=== PATIENT | male | born 1980 | race Caucasian/White ===

== ENCOUNTER 2023-02-01 12:35 | Inpatient (IN) ==
--- NOTE | 2023-02-01 12:58 | ED Triage Note ---
Date of Service February 01, 2023 History of Present Illness This patient was briefly evaluated while in triage. An abbreviated physical exam was performed. This patient is a 43-year-old Male who presents to the ED for evaluation of right upper abdominal pain. Symptoms have been ongoing for a while but Wednesday became acutely worse. Pain is intermittent and crampy. Not associated with meals or BM. Reports fever over weekend. Denies vomiting or diarrhea. Physical Exam Constitutional: alert and oriented x3. no acute distress. HEENT: normocephalic, atraumatic. normal conjunctiva.PERRLA. EOM's grossly intact. Respiratory: lungs are clear to auscultation without wheezes, rhonchi, or rales bilaterally. equal chest rise. normal respiratory effort, no accessory muscle use. Cardiovascular: normal heart sounds without murmur. regular rate and rhythm. GI: abdomen is soft, nondistended. RUQ tenderness. No palpable masses. No rebound tenderness or guarding. MSK: moves all 4 extremities spontaneously Psych:appropriate mood and affect. Initial orders for labs and / or imaging were placed and patient was placed in the waiting area until a bed is available. Please see further documentation for the full ED course.
--- NOTE | 2023-02-01 13:31 | XRay Report ---
XR chest 1V not portable HISTORY: 43 years-old Male RUQ abd pain acute right upper quadrant abdominal pain COMPARISON: None TECHNIQUE: PA view of the chest FINDINGS: Cardiac mediastinal and hilar silhouettes are within normal limits. No pneumothorax, pleural effusion , airspace consolidation or pulmonary edema. Bones appear grossly intact. IMPRESSION: No acute process. ACT 112: Negative or not required by law. The above report was generated using voice recognition software. It may contain grammatical, syntax o r spelling errors. Electronically signed by: Wilfredo Ward M.D. 02/01/2023 1:29 PM
[2023-02-01 14:26] LABS: Basophils # (auto) 0.03 K/uL (0.00-0.20); Basophils % (auto) 0.3 %; Eosinophils # (auto) 0.07 K/uL (0.00-0.50); Eosinophils % (auto) 0.6 %; Hemoglobin 15.5 g/dl (14.0-18.0); Immature Granulocytes # (auto) 0.04 K/uL (0.01-0.20); Immature Granulocytes % (auto) 0.4 %; Lymphocytes # (auto) 1.39 K/uL (1.20-3.40); Lymphocytes % (auto) 12.8 %; Mean Corpuscular Hemoglobin 29.8 pg (25.0-34.0); Mean Corpuscular Hgb Conc 35.2 g/dL (32.0-36.0); Mean Corpuscular Volume 84.5 fL (80.0-100.0); Mean Platelet Volume 10.1 fL (9.4-12.4); Monocytes % (auto) 11.1 %; Neutrophils # (auto) 8.11 K/uL (1.40-6.50); Neutrophils % (auto) 74.8 %; Platelet Count 195 K/uL (130-400); RDW Standard Deviation 40.2 fL (36.4-46.3); Red Blood Count 5.21 M/uL (4.70-6.10); White Blood Count 10.84 K/ul (4.8-10.8)
[2023-02-01 14:34] LABS: Albumin Globulin Ratio 1.2 (0.9-2); BUN Creatinine Ratio 13.5 (10-20); Calcium 9.2 mg/dl (8.6-10.3); Creatinine Clr Calc Pharmacy 136.7 ml/min; Est GFR (African American) 121.4 ml/min; Est GFR (Non-African American) 104.7 ml/min; Globulin 3.4 gm/dl (2.5-4.0); Potassium 3.2 mmol/L (3.5-5.1); Total Protein 7.4 gm/dl (6.0-8.3)
[2023-02-01] MEDS ORDERED: OPTIRAY 320 100ml IV ONE (15:41)
--- NOTE | 2023-02-01 16:16 | Emergency Department Note ---
History of Present Illness General Chief complaint: Abdominal Pain Stated complaint: abd pain Time Seen by Provider: 02/01/23 15:49 Source: patient, RN notes reviewed and old records reviewed Mode of arrival: ambulatory Limitations: no limitations History of Present Illness Maximum Pain Intensity: 1 This patient is a 43-year-old male who comes in with right upper quad abdominal pain. He said he first noticed in 2020 he had sporadically since then but has had a particularly bad episode since Wednesday evening or morning he woke up at 4:00 in the morning it was severe pain harder than before and lasted much longer. He denies any nausea vomitings had decreased appetite he has had loose stool without blood no dysuria no trauma or injury no chest pain or shortness of breath no pleurisy no change with movement it gets a little better with ibuprofen he still has some mild residual discomfort. He just feels like there is something there Home Medications Medication Instructions Recorded Confirmed Type No Known Home Medications 02/01/23 02/01/23 History Allergies Allergy/AdvReac Type Severity Reaction Status Date / Time No Known Allergies Allergy Unverified 02/01/23 18:52 Past Med/Surg History Medical History No significant past medical history Surgical History No significant past surgical history Family History Father Heart disease Mother Gallstone Uncle Cancer Pancreatic cancer in his 50s, around ~2002. Social History Smoking Status: Never smoker Hx Alcohol Use: No Hx Substance Use: No current occupational status: employed Feels Safe at Home: Yes Immunizations: Past medical historydenies kidney stones denies abdominal surgery Family history his mother just had gallstones Social historydoes not smoke. 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 Review of Systems A total of 10 systems reviewed and were otherwise negative Physical Exam Vital Signs Vital Signs - 24 hr 02/01/23 12:55 02/01/23 17:25 02/01/23 17:25 Temperature 36.8 C Temperature Source Temporal Artery Scan Pulse Rate 83 84 Pulse Rate [Finger] 84 Pulse Rate from SpO2 Sensor Pulse Rhythm Regular Pulse Rhythm [Finger] Regular Pulse Strength [Finger] Normal Respiratory Rate 18 16 16 Respiratory Effort / Characteristics Non-Labored Spontaneous Non-Labored Spontaneous Respiratory Depth Normal Normal Respiratory Pattern Regular Regular Blood Pressure 146/98 H Blood Pressure [Right Arm] 142/83 H Blood Pressure Mean 114 Blood Pressure Mean [Right Arm] 102 Blood Pressure Position [Right Arm] Sitting Pulse Oximetry 97 97 97 Oxygen Delivery Method Room Air Room Air Room Air Sepsis Recent Fever Within 48 Hours Yes Sepsis New/Unexplained Change in Mental Status N/A Sepsis Action Taken by Nursing No Action Required 02/01/23 18:35 02/01/23 18:34 02/01/23 19:00 Temperature Temperature Source Pulse Rate 87 85 Pulse Rate [Finger] 88 Pulse Rate from SpO2 Sensor 88 Pulse Rhythm Pulse Rhythm [Finger] Pulse Strength [Finger] Respiratory Rate 21 19 Respiratory Effort / Characteristics Respiratory Depth Respiratory Pattern Blood Pressure 146/79 H Blood Pressure [Right Arm] 144/78 H Blood Pressure Mean 101 Blood Pressure Mean [Right Arm] 100 Blood Pressure Position [Right Arm] Pulse Oximetry 97 96 Oxygen Delivery Method Room Air Sepsis Recent Fever Within 48 Hours Sepsis New/Unexplained Change in Mental Status Sepsis Action Taken by Nursing 02/01/23 21:00 Temperature Temperature Source Pulse Rate Pulse Rate [Finger] 75 Pulse Rate from SpO2 Sensor Pulse Rhythm Pulse Rhythm [Finger] Pulse Strength [Finger] Respiratory Rate 15 Respiratory Effort / Characteristics Respiratory Depth Respiratory Pattern Blood Pressure Blood Pressure [Right Arm] Blood Pressure Mean Blood Pressure Mean [Right Arm] Blood Pressure Position [Right Arm] Pulse Oximetry 96 Oxygen Delivery Method Sepsis Recent Fever Within 48 Hours Sepsis New/Unexplained Change in Mental Status Sepsis Action Taken by Nursing General: Well developed well nourished not ill-appearing middle-age male who appears in no acute distress, breathing comfortably on room air. Normal speech HEENT: Normal cephalic atraumatic. Pupils are equal round and reactive to light. Sclera anicteric extraocular movements are intact. Oropharynx is pink with moist mucous membranes. No swelling of the mouth lips or tongue. Neck: Supple with a midline trachea. No meningeal signs or stiffness, no JVD or bruits. No Stridor. Chest: Clear to auscultation bilaterally. No wheezes or rhonchi. No increased work of breathing. Heart: Regular rate and rhythm without murmurs or gallops. Abdomen: Soft, mildly tender in the epigastric area in the right upper quadrant, nondistended without rebound guarding or rigidity. Extremities: No cyanosis clubbing or edema. No calf tenderness or assymetry Spine/Back. Non tender to palpation. No CVA tenderness Skin: Good turgor without rashes. Neurologic exam: Cranial nerves two through 12 are intact. Motor and sensation are intact and symmetrical throughout. Course Administered Medications Acetaminophen (Acetaminophen 325 Mg Tab) 650 mg PO Q4H PRN PRN Reason: Moderate Pain (Scale 4, 5, 6) Stop: 03/03/23 18:11 Last Admin: 02/01/23 19:16 Dose: 650 mg Documented By: LATONYA Lactated Ringer's (Lr) 1,000 mls @ 80 mls/hr IV .[id number] LUCÍA Stop: 02/02/23 07:04 Last Admin: 02/01/23 18:51 Dose: 80 mls/hr Documented By: QUYEN Discontinued Medications Piperacillin Sod/Tazobactam (Sod 4.5 gm/ Dextrose) 100 mls @ 200 mls/hr IV NOW ONE; Protocol Stop: 02/01/23 17:52 Last Infusion: 02/01/23 19:18 Dose: 0 mls/hr Documented By: Admin: 02/01/23 18:00 Dose: 200 mls/hr Documented By: LIN Ioversol (Optiray 320 100ml) 91 ml IV ONCE ONE Stop: 02/01/23 15:42 Last Admin: 02/01/23 15:41 Dose: 91 ml Documented By: ELIJAH Potassium Chloride (Potassium Chloride Crtab 20 Meq Tabcr) 20 meq PO NOW STA Stop: 02/01/23 18:39 Last Admin: 02/01/23 18:50 Dose: 20 meq Documented By: QUYEN Potassium Chloride (Potassium Chloride Crtab 20 Meq Tabcr) 20 meq PO NOW STA Stop: 02/01/23 18:29 Last Admin: 02/01/23 18:51 Dose: 20 meq Documented By: QUYEN Medical Decision Making Differential Diagnosis Gallbladder disease, gallstones, hepatitis, pancreatitis, electrolyte or metabolic abnormality, anemia, bowel obstruction, UTI kidney stone Medical Records Attestation: I reviewed the patient's medical records. Home Medications Current Medication List: was personally reviewed by me Laboratory Data Attestation: I reviewed the patient's lab results. 02/01/23 14:02 02/01/23 14:02 Lab Results 02/01/23 02/01/23 02/01/23 Range/Units 14:02 14:02 18:58 WBC 10.84 H (4.8-10.8) K/ul RBC 5.21 (4.70-6.10) M/uL Hgb 15.5 (14.0-18.0) g/dl Hct 44.0 (42.0-52.0) % MCV 84.5 (80.0-100.0) fL MCH 29.8 (25.0-34.0) pg MCHC 35.2 (32.0-36.0) g/dL RDW Std Deviation 40.2 (36.4-46.3) fL RDW Coeff of Yesy 13.0 (11.5-14.5) % Plt Count 195 (130-400) K/uL MPV 10.1 (9.4-12.4) fL Immature Gran % (Auto) 0.4 % Neut % (Auto) 74.8 % Lymph % (Auto) 12.8 % [place] % (Auto) 11.1 % Eos % (Auto) 0.6 % Baso % (Auto) 0.3 % Neut # (Auto) 8.11 H (1.40-6.50) K/uL Lymph # (Auto) 1.39 (1.20-3.40) K/uL [place] # (Auto) 1.20 H (0.11-0.59) K/uL Eos # (Auto) 0.07 (0.00-0.50) K/uL Baso # (Auto) 0.03 (0.00-0.20) K/uL Immature Gran # (Auto) 0.04 (0.01-0.20) K/uL Sodium 138 (136-145) mmol/L Potassium 3.2 L (3.5-5.1) mmol/L Chloride 100 (98-107) mmol/L Carbon Dioxide 31 (21-32) mmol/L Anion Gap 7 (3-11) BUN 12 (6-23) mg/dl Creatinine 0.89 (0.6-1.4) mg/dl Est Cr Clr Drug Dosing 136.7 ml/min Est GFR ( Amer) 121.4 ml/min Est GFR (Non-Af Amer) 104.7 ml/min BUN/Creatinine Ratio 13.5 (10-20) Glucose 95 (70-99(Fasting)) mg/dl Calcium 9.2 (8.6-10.3) mg/dl Total Bilirubin 1.0 (0.2-1.0) mg/dl AST 27 (13-39) U/L ALT 40 (7-52) U/L Alkaline Phosphatase 111 H (34-104) U/L Total Protein 7.4 (6.0-8.3) gm/dl Albumin 4.0 (3.4-5.0) gm/dl Globulin 3.4 (2.5-4.0) gm/dl Albumin/Globulin Ratio 1.2 (0.9-2) Lipase 33 (11-82) U/L Urine Color Dark Yellow Urine Appearance Clear (Clear) Urine pH 6.0 (4.5-7.5) Ur Specific [place] > 1.045 H (1.000-1.030) Urine Protein 1+ H (Negative) Urine Glucose (UA) Negative (Negative) Urine Ketones 2+ H (Negative) Urine Blood Trace H (Negative) Urine Nitrite Negative (Negative) Urine Bilirubin Negative (Negative) Urine Urobilinogen Negative (Negative) Ur Leukocyte Esterase Negative (Negative) Urine WBC (Auto) 1-5 (0-5) /hpf Urine RBC (Auto) 5-10 H (0-4) /hpf U Hyaline Cast (Auto) 0 (0-5) /lpf U Epithel Cells (Auto) 5-10 H (0-5) /lpf Urine Bacteria (Auto) Negative (Negative) Imaging Data Attestation: I personally reviewed and interpreted this imaging study as follows: My Impression: Chest x-rayno acute infiltrate, failure, pneumothorax seen Abdominal CTthere appears to be a large stone in the gallbladder near the neck. There is also gallbladder wall thickening Radiologist's Impression: Chest X-Ray 02/01/23 12:58 XR chest 1V not portable HISTORY: 43 years-old Male RUQ abd pain acute right upper quadrant abdominal pain COMPARISON: None TECHNIQUE: PA view of the chest FINDINGS: Cardiac mediastinal and hilar silhouettes are within normal limits. No pneumothorax, pleural effusion, airspace consolidation or pulmonary edema. Bones appear grossly intact. IMPRESSION: No acute process. ACT 112: Negative or not required by law. The above report was generated using voice recognition software. It may contain grammatical, syntax or spelling errors. Electronically signed by: Wilfredo Ward M.D. 02/01/2023 1:29 PM Abdomen/Pelvis CT 02/01/23 12:59 CT OF THE ABDOMEN AND PELVIS WITH CONTRAST CLINICAL HISTORY: Right upper quadrant abdominal pain. COMPARISON STUDY: None. TECHNIQUE: Following IV administration of 91 mL of Optiray, axial images of the abdomen and pelvis were obtained from the lung bases to the proximal femurs. Images were reviewed in the axial, sagittal, and coronal planes. IV contrast was administered without complication. Automated exposure control was utilized for the study. A dose lowering technique was utilized adhering to the principles of ALARA. CT DOSE: 1549.61 mGy.cm FINDINGS: A 5 mm right lower lobe nodule on image 13 of 413 and is probably benign. No pneumatosis, free air or portal venous gas is present. The gallbladder is mildly distended. A 2.7 cm gallstone within the gallbladder is noted. There is moderate gallbladder wall thickening with minimal pericholecystic stranding. Note is made of a 2.6 cm hypodense focus within the adjacent portion of the liver, within segment 5. This may have mild peripheral enhancement. No biliary or pancreatic ductal dilatation is present. Spleen, adrenal glands, kidneys and pancreas are normal. There is no evidence for a bowel obstruction. The caliber and wall thickness of small and large bowel are normal. The appendix is normal. Major vasculature is patent. There is no lymphadenopathy. IMPRESSION: 2.7 cm gallstone within the gallbladder with moderate gallbladder wall thickening and minimal pericholecystic stranding. The findings favor acute cholecystitis. Adjacent 2.6 cm hypodense focus within the liver. Given close proximity to the gallbladder, a small hepatic abscess in the setting of contained perforation cannot be excluded although the extent of inflammation is less than expected. An indeterminate hepatic lesion such as hemangioma, could appear similar. ACT 112: Negative or not required by law. Electronically signed by: Gary Cordero M.D. 02/01/2023 4:26 PM MDM Narrative This patient comes in as scribed above [place]. He looks well but has been having significant pain. He is mildly tender without peritonitis in right upper quadrant. His white count is mildly elevated but his liver functions are within normal limits he has nothing suggest pancreatitis. He has no significant fluid or metabolic abnormalities. I did a CAT scan which shows a large gallstone with thickened gallbladder and a small amount of fluid around the gallbladder consistent with acute cholecystitis likely. Adjacent there is a small area in the liver which could be hemangioma or possible extension of the infection. I gave the the patient Zosyn 4.5 g IV for broad-spectrum intra-abdominal/antibiotic coverage. He remained stable but I do think needs to be admitted for surgical consultation and IV antibiotics. I have discussed the case with the [facility] hospitalist and they saw him in the ER for these measures. I also discussed the case in consultation with Dr. Tang Abdi the [facility] surgeon on-call and he saw the patient in the ER and they will admit the patient for further treatment and evaluation. Impression & Plan Acute cholecystitis, Leukocytosis, Cholelithiasis, Abdominal pain, acute, right upper quadrant Discharge Plan Visit Data Chief Complaint: Abdominal Pain Stated Complaint: abd pain ED Provider: Garcia Rincon Discharge Problem: Acute cholecystitis, Leukocytosis, Cholelithiasis, Abdominal pain, acute, right upper quadrant Patient Disposition: Admitted As Inpatient Forms Stand Alone Forms: My [facility] Interviewstreet Prescriptions Prescriptions: No Action No Known Home Medications Referrals Referrals: PCP,NO [Primary Care Provider] -
--- NOTE | 2023-02-01 16:27 | CT Scan Report ---
CT OF THE ABDOMEN AND PELVIS WITH CONTRAST CLINICAL HISTORY: Right upper quadrant abdominal pain. COMPARISON STUDY: None. TECHNIQUE: Following IV administration of 91 mL of Optiray, axial images of the abdomen and pelvis we re obtained from the lung bases to the proximal femurs. Images were reviewed in the axial, sagittal, and coronal planes. IV contrast was administered without complication. Automated exposure control wa s utilized for the study. A dose lowering technique was utilized adhering to the principles of ALARA . CT DOSE: 1549.61 mGy.cm FINDINGS: A 5 mm right lower lobe nodule on image 13 of 413 and is probably benign. No pneumatosis, f ree air or portal venous gas is present. The gallbladder is mildly distended. A 2.7 cm gallstone with in the gallbladder is noted. There is moderate gallbladder wall thickening with minimal pericholecyst ic stranding. Note is made of a 2.6 cm hypodense focus within the adjacent portion of the liver, with in segment 5. This may have mild peripheral enhancement. No biliary or pancreatic ductal dilatation i s present. Spleen, adrenal glands, kidneys and pancreas are normal. There is no evidence for a bowel obstruction. The caliber and wall thickness of small and large bowel are normal. The appendix is norm al. Major vasculature is patent. There is no lymphadenopathy. IMPRESSION: 2.7 cm gallstone within the gallbladder with moderate gallbladder wall thickening and mi nimal pericholecystic stranding. The findings favor acute cholecystitis. Adjacent 2.6 cm hypodense fo cus within the liver. Given close proximity to the gallbladder, a small hepatic abscess in the settin g of contained perforation cannot be excluded although the extent of inflammation is less than expect ed. An indeterminate hepatic lesion such as hemangioma, could appear similar. ACT 112: Negative or not required by law. Electronically signed by: Gary Cordero M.D. 02/01/2023 4:26 PM
[2023-02-01] MEDS ORDERED: PIPERACILLIN/TAZOBACTAM 4.5 GM in DEXTROSE 5% MINI-B 100 ML IV ONE (17:23)
--- NOTE | 2023-02-01 17:40 | History & Physical Report ---
Date of Service February 01, 2023 Assessment & Plan (1) Acute cholecystitis: (2) Obesity (BMI 30.0-34.9): (3) Hypokalemia: (4) Fever: (5) Leukocytosis: Plan: 43 yo M with PMhx of obesity with BMI of 34.7,without any other past medical history, who presents the hospital with right upper quadrant abdominal pain, fever, chills, rigors x5 days. Acute cholecystitis Possible Liver abscess vs hemiangioma - Admit to med surg - Started on IV zosyn in the ER, Will continue this for now - Noted CT findings and reviewed the imaging personally - showing 2.7 cm gallstone within the gallbladder with moderate gallbladder wall thickening and minimal pericholecystic stranding. The findings favor acute cholecystitis. Adjacent 2.6 cm hypodense focus within the liver. Given close proximity to the gallbladder, a small hepatic abscess in the setting of contained perforation cannot be excluded although the extent of inflammation is less than expected. An indeterminate hepatic lesion such as hemangioma, could appear similar. - General surgery consulted - discussed with Dr. abdi at bedside, will plan on cholecystectomy tomorrow. - Concern for possible abscess of the liver? His history of fever, rigors and chills is suspicious for abscess but not proven -Tbili normal, AST, ALT ok, Alk phos 111, trend lfts with am labs. - Will obtain RUQ U/S to further evaluate possible abscess vs hemiangioma STAT. - Allow clears until midnight, then strict NPO - Start LR at 80 ml/hr for gentle hydration - WBC of 10.84 - Pain control with IV Dilaudid 0.5 mg Q3H prn for moderate pain and 1 mg Q6H prn for severe pain Elevated BP -BP is elevated--possible that he has some underlying hypertension given body habitus and his age, monitor. - Will check lipids and A1C for completeness Obesity - BMI of 34.7 - Diet and exercise to be encouraged throughout hospital stay Hypokalemia - Replace potassium, K= 3.2 on admission DVT ppx: teds, scds Lines: 2 PIV CODE: Full code Dispo: From home, remain in the hospital x 1-2 days, plan for acute cholecystectomy tomorrow History of Present Illness Chief Complaint: Abdominal Pain Primary Care Provider: NO PCP This is a 43 yo M with PMhx of obesity with BMI of 34.7,without any other past medical history, who presents the hospital with right upper quadrant abdominal pain fever, chills, rigors x5 days. He has intermittently had RUQ abdominal pain since 2020. Prior to his worsening pain this past Wednesday, the last time it occurred was over 6 months ago. Pt notes that he ate ribs on Wednesday night, and then woke up at 3:30a-4:00am with excruciating RUQ pain which lasted nearly for 12 hours. His pain was dull and lessened later in the day after taking ibuprofen. Since then he has had minimal appetite, and intermittent nausea, no vomiting. Denies diarrhea. Pt has been tolerating fluids without worsening pain. He had been taking ibuprofen 400 mg Q8H since for both pain, and admits to fever of 100, with chills and rigors on and off for the past 48 hours despite consistently taking the ibuprofen. He denies any previous abdominal surgeries. Pt has never experienced something like this before. His pain is currently minimal rating 1/10. Pt denies any recent travel outside of the [place], or even domestic travel. No recent consumption of raw or undercooked foods. His significant other knows that he is in the ER and plans to visit him this evening. Social Hx: Denies alcohol, tobacco use or illicit drug use. 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 Allergies Allergy/AdvReac Type Severity Reaction Status Date / Time No Known Allergies Allergy Unverified 02/01/23 18:52 Home Medications Medication Instructions Recorded Confirmed Type No Known Home Medications 02/01/23 02/01/23 History Past Med/Surg History Medical History No significant past medical history Surgical History No significant past surgical history Family History Father Heart disease Mother Gallstone Uncle Cancer Pancreatic cancer in his 50s, around ~2002. Social History Smoking Status: Never smoker Hx Alcohol Use: No Hx Substance Use: No current occupational status: employed Feels Safe at Home: Yes Review of Systems Review of Systems: Constitutional: + fever, + chills and rigors as per hpi. no sweats Eyes: No diplopia, no worsening or blurred vision ENT: normal hearing, no trouble swallowing Respiratory: No cough, sputum, dyspnea at rest or on exertion Cardiovascular: No chest pain, tightness or palpitations Abdomen:As per HPI. Musculoskeletal: No joint pain, calf pain, swelling Neurologic: No weakness, numbness/tingling, or balance problems Psychiatric: No anxiety or depression Skin: No rash or itch Physical Exam Physical Exam: General: awake, alert, no apparent distress, obese white male Head: Normocephalic, atraumatic ENT: PERRL, EOMI, no pharyngeal exudate, mucous membranes moist Chest: Clear to auscultation, on room air, no adventitious breath sounds Cardiac: Regular rate and rhythm, no murmur, no JVD, normal peripheral pulses, good capillary refill Abdominal: NABS x 4 quadrants, soft, nondistended, minimally tender to palpation in RUQ, no rebound or guarding Extremities: Normal inspection, no peripheral edema or erythema, calfs nontender to palpation Psych: Normal mood and affect Neuro: AAO x 3, strength intact bilaterally and rated 5/5, no motor deficits, speech is clear, no peripheral sensory deficits Results & Data Results & Data Vital Signs (Past 12 Hours) Vital Signs Temp Pulse Pulse Resp BP BP Pulse Ox 02/01/23 17:25 84 16 97 02/01/23 17:25 84 16 142/83 H 97 02/01/23 12:55 36.8 C 83 18 146/98 H 97 O2 Del Method 02/01/23 17:25 Room Air 02/01/23 17:25 Room Air 02/01/23 12:55 Room Air Laboratory Results 02/01/23 02/01/23 14:02 14:02 WBC 10.84 H RBC 5.21 Hgb 15.5 Hct 44.0 MCV 84.5 MCH 29.8 MCHC 35.2 RDW Std Deviation 40.2 RDW Coeff of Yesy 13.0 Plt Count 195 MPV 10.1 Immature Gran % (Auto) 0.4 Neut % (Auto) 74.8 Lymph % (Auto) 12.8 [place] % (Auto) 11.1 Eos % (Auto) 0.6 Baso % (Auto) 0.3 Neut # (Auto) 8.11 H Lymph # (Auto) 1.39 [place] # (Auto) 1.20 H Eos # (Auto) 0.07 Baso # (Auto) 0.03 Immature Gran # (Auto) 0.04 Sodium 138 Potassium 3.2 L Chloride 100 Carbon Dioxide 31 Anion Gap 7 BUN 12 Creatinine 0.89 Est Cr Clr Drug Dosing 136.7 Est GFR ( Amer) 121.4 Est GFR (Non-Af Amer) 104.7 BUN/Creatinine Ratio 13.5 Glucose 95 Calcium 9.2 Total Bilirubin 1.0 AST 27 ALT 40 Alkaline Phosphatase 111 H Total Protein 7.4 Albumin 4.0 Globulin 3.4 Albumin/Globulin Ratio 1.2 Lipase 33 Diagnostic Findings Chest X-Ray 02/01/23 12:58 XR chest 1V not portable HISTORY: 43 years-old Male RUQ abd pain acute right upper quadrant abdominal pain COMPARISON: None TECHNIQUE: PA view of the chest FINDINGS: Cardiac mediastinal and hilar silhouettes are within normal limits. No pneumothorax, pleural effusion, airspace consolidation or pulmonary edema. Bones appear grossly intact. IMPRESSION: No acute process. ACT 112: Negative or not required by law. The above report was generated using voice recognition software. It may contain grammatical, syntax or spelling errors. Electronically signed by: Wilfredo Ward M.D. 02/01/2023 1:29 PM Abdomen/Pelvis CT 02/01/23 12:59 CT OF THE ABDOMEN AND PELVIS WITH CONTRAST CLINICAL HISTORY: Right upper quadrant abdominal pain. COMPARISON STUDY: None. TECHNIQUE: Following IV administration of 91 mL of Optiray, axial images of the abdomen and pelvis were obtained from the lung bases to the proximal femurs. Images were reviewed in the axial, sagittal, and coronal planes. IV contrast was administered without complication. Automated exposure control was utilized for the study. A dose lowering technique was utilized adhering to the principles of ALARA. CT DOSE: 1549.61 mGy.cm FINDINGS: A 5 mm right lower lobe nodule on image 13 of 413 and is probably benign. No pneumatosis, free air or portal venous gas is present. The gallbladder is mildly distended. A 2.7 cm gallstone within the gallbladder is noted. There is moderate gallbladder wall thickening with minimal pericholecystic stranding. Note is made of a 2.6 cm hypodense focus within the adjacent portion of the liver, within segment 5. This may have mild peripheral enhancement. No biliary or pancreatic ductal dilatation is present. Spleen, a drenal glands, kidneys and pancreas are normal. There is no evidence for a bowel obstruction. The caliber and wall thickness of small and large bowel are normal. The appendix is normal. Major vasculature is patent. There is no lymphadenopathy. IMPRESSION: 2.7 cm gallstone within the gallbladder with moderate gallbladder wall thickening and minimal pericholecystic stranding. The findings favor acute cholecystitis. Adjacent 2.6 cm hypodense focus within the liver. Given close proximity to the gallbladder, a small hepatic abscess in the setting of contained perforation cannot be excluded although the extent of inflammation is less than expected. An indeterminate hepatic lesion such as hemangioma, could appear similar. ACT 112: Negative or not required by law. Electronically signed by: Gary Cordero M.D. 02/01/2023 4:26 PM Code Status & VTE Plan Code Status Full code- discuss with pt at bedside Supervising Physician Co-Signing Physician Notes I have seen and discussed the case with the collaborating CARYN. I agree with the above H&P. I have reviewed and confirmed the patients medical history, the findings on physical examination, and the patients diagnosis and treatment plan with Walt RUBIN and agree with the information documented. In short, Mr. Shi is a 43 year old gentleman with history of RUQ ongoing under ribcage x5days. Imaging with signs of cholecysitis and ?abscess formation. HDS. Plan for Liver US to eval hypoechoic area. Tentative yulissa with GS tomorrow.
[2023-02-01] MEDS ORDERED: ONDANSETRON INJ 2 MG/ML 2 ML VIAL IV PRN (18:12)
[2023-02-01] MEDS ORDERED: MoRPHine SULFATE 4 MG/ML 1 ML CARP\\VIAL IV PRN (18:14)
[2023-02-01] MEDS ORDERED: ACETAMINOPHEN 325 MG TAB PO PRN (18:14)
[2023-02-01] MEDS ORDERED: POTASSIUM CHLORIDE CRTAB 20 MEQ TABCR PO STA ×2 (18:28→18:38)
[2023-02-01] MEDS ORDERED: LACTATED RINGER'S 1,000 ML IV SCH ×2 (18:35→23:30)
--- NOTE | 2023-02-01 18:36 | Surgery Consultation ---
Date of Consultation February 01, 2023 Assessment & Plan (1) Acute cholecystitis: Plan 43-year-old gentleman with what appears to be acute cholecystitis. There is a question of whether he has a small liver abscess with a contained perforation. We will obtain an ultrasound of the right upper quadrant/gallbladder/liver for further characterization. He will be n.p.o. after midnight. He will be on IV antibiotics and IV fluids. We will plan for laparoscopic cholecystectomy tomorrow morning. Appreciate medicine help and input. History of Present Illness Reason for Consultation: Acute cholecystitis Requesting Physician: Garcia Rincon MD Attending Physician: Garcia Rincon MD History of Present Illness 43-year-old gentleman presents with a year-long history of nonspecific right upper quadrant epigastric abdominal pain. At one point he thought he had an u lcer. For the last few days he has been having high fevers and rigors. He has some right upper quadrant abdominal pain. This did not occur after eating. It radiates to the back. He denies trouble with bowel movements. CT scan demonstrates large gallstone within the gallbladder with gallbladder wall thickening and a small amount of pericholecystic fluid. There is also a nonspecific lesion in the liver bed near the gallbladder which could potentially be a contained perforation. Patient History Medical History No significant past medical history Surgical History No significant past surgical history Family History Father Heart disease Mother Gallstone Uncle Cancer Pancreatic cancer in his 50s, around ~2002. Social History Smoking Status: Never smoker Hx Alcohol Use: No Hx Substance Use: No current occupational status: employed Feels Safe at Home: Yes Review of Systems Review of Systems: All systems reviewed & are unremarkable except as noted in HPI & below Physical Exam Constitutional: WD/WN, vitals as above Eyes: PERRL, conjunctivae normal, anicteric sclerae Neck: trachea midline, no thyromegaly Respiratory: normal respiratory effort; no respiratory distress and no labored breathing Cardiovascular: Rate/Rhythm: regular rate and regular rhythm Gastrointestinal (Abdomen): Inspection/Auscultation: abdomen normal to inspection; abdomen not distended Percussion/Palpation: + abdomen tender (RUQ and epigastric, mild) and abdomen soft; no guarding and abdomen not rigid Skin: no rashes, warm and dry Psychiatric: A+Ox3, euthymic affect Results & Data Vital Signs (Past 12 Hours) Vital Signs Temp Pulse Pulse Resp BP BP Pulse Ox 02/01/23 17:25 84 16 97 02/01/23 17:25 84 16 142/83 H 97 02/01/23 12:55 36.8 C 83 18 146/98 H 97 O2 Del Method 02/01/23 17:25 Room Air 02/01/23 17:25 Room Air 02/01/23 12:55 Room Air Laboratory Results 02/01/23 02/01/23 Range/Units 14:02 14:02 WBC 10.84 H (4.8-10.8) K/ul RBC 5.21 (4.70-6.10) M/uL Hgb 15.5 (14.0-18.0) g/dl Hct 44.0 (42.0-52.0) % MCV 84.5 (80.0-100.0) fL MCH 29.8 (25.0-34.0) pg MCHC 35.2 (32.0-36.0) g/dL RDW Std Deviation 40.2 (36.4-46.3) fL RDW Coeff of Yesy 13.0 (11.5-14.5) % Plt Count 195 (130-400) K/uL MPV 10.1 (9.4-12.4) fL Immature Gran % (Auto) 0.4 % Neut % (Auto) 74.8 % Lymph % (Auto) 12.8 % [place] % (Auto) 11.1 % Eos % (Auto) 0.6 % Baso % (Auto) 0.3 % Neut # (Auto) 8.11 H (1.40-6.50) K/uL Lymph # (Auto) 1.39 (1.20-3.40) K/uL [place] # (Auto) 1.20 H (0.11-0.59) K/uL Eos # (Auto) 0.07 (0.00-0.50) K/uL Baso # (Auto) 0.03 (0.00-0.20) K/uL Immature Gran # (Auto) 0.04 (0.01-0.20) K/uL Sodium 138 (136-145) mmol/L Potassium 3.2 L (3.5-5.1) mmol/L Chloride 100 (98-107) mmol/L Carbon Dioxide 31 (21-32) mmol/L Anion Gap 7 (3-11) BUN 12 (6-23) mg/dl Creatinine 0.89 (0.6-1.4) mg/dl Est Cr Clr Drug Dosing 136.7 ml/min Est GFR ( Amer) 121.4 ml/min Est GFR (Non-Af Amer) 104.7 ml/min BUN/Creatinine Ratio 13.5 (10-20) Glucose 95 (70-99(Fasting)) mg/dl Calcium 9.2 (8.6-10.3) mg/dl Total Bilirubin 1.0 (0.2-1.0) mg/dl AST 27 (13-39) U/L ALT 40 (7-52) U/L Alkaline Phosphatase 111 H (34-104) U/L Total Protein 7.4 (6.0-8.3) gm/dl Albumin 4.0 (3.4-5.0) gm/dl Globulin 3.4 (2.5-4.0) gm/dl Albumin/Globulin Ratio 1.2 (0.9-2) Lipase 33 (11-82) U/L Diagnostic Findings CT OF THE ABDOMEN AND PELVIS WITH CONTRAST CLINICAL HISTORY: Right upper quadrant abdominal pain. COMPARISON STUDY: None. TECHNIQUE: Following IV administration of 91 mL of Optiray, axial images of the abdomen and pelvis were obtained from the lung bases to the proximal femurs. Images were reviewed in the axial, sagittal, and coronal planes. IV contrast was administered without complication. Automated exposure control was utilized for the study. A dose lowering technique was utilized adhering to the principles of ALARA. CT DOSE: 1549.61 mGy.cm FINDINGS: A 5 mm right lower lobe nodule on image 13 of 413 and is probably benign. No pneumatosis, free air or portal venous gas is present. The gallbladder is mildly distended. A 2.7 cm gallstone within the gallbladder is noted. There is moderate gallbladder wall thickening with minimal pericholecystic stranding. Note is made of a 2.6 cm hypodense focus within the adjacent portion of the liver, within segment 5. This may have mild peripheral enhancement. No biliary or pancreatic ductal dilatation is present. Spleen, adrenal glands, kidneys and pancreas are normal. There is no evidence for a bowel obstruction. The caliber and wall thickness of small and large bowel are normal. The appendix is normal. Major vasculature is patent. There is no lymphadenopathy. IMPRESSION: 2.7 cm gallstone within the gallbladder with moderate gallbladder wall thickening and minimal pericholecystic stranding. The findings favor acute cholecystitis. Adjacent 2.6 cm hypodense focus within the liver. Given close proximity to the gallbladder, a small hepatic abscess in the setting of contained perforation cannot be excluded although the extent of inflammation is less than expected. An indeterminate hepatic lesion such as hemangioma, could appear similar. ACT 112: Negative or not required by law.
[2023-02-01] MEDS ORDERED: HYDROmorphone INJ 1 MG/ML SYRINGE IV PRN (18:41)
[2023-02-01 19:14] LABS: Appearance Urine Clear (Clear); Bacteria Urine Automated Negative (Negative); Bilirubin Urine Negative (Negative); Blood Urine Trace (Negative); Cast Urine Automated 0 /lpf (0-5); Color Urine Dark Yellow; Glucose Urine UA Negative (Negative); Ketones Urine 2+ (Negative); Leukocyte Esterase Urine Negative (Negative); Nitrite Urine Negative (Negative); Protein Urine 1+ (Negative); Specific Gravity Urine > 1.045 (1.000-1.030); Urobilinogen Urine Negative (Negative)
[2023-02-01] MEDS: ACETAMINOPHEN 325 MG TAB PO PRN (19:16)
[2023-02-01] MEDS: PIPERACILLIN/TAZOBACTAM 4.5 GM in DEXTROSE 5% MINI-B 100 ML IV SCH (22:40)
--- NOTE | 2023-02-02 01:01 | Ultrasound Report ---
Exam(s): US GALLBLADDER EXAM: US Abdomen Limited, Gallbladder CLINICAL HISTORY: Reason for exam: Assess possible abscess liver on CT, acute yulissa. TECHNIQUE: Real-time ultrasound of the right upper quadrant with image documentation. COMPARISON: No relevant prior studies available. FINDINGS: Liver: Visualized hepatic parenchyma is unremarkable without evidence of an abscess. Gallbladder: Cholelithiasis. Gallbladder wall thickening. Common bile duct: Common bile duct is not visualized on this exam. Pancreas: Unremarkable as visualized. IMPRESSION: 1. Cholelithiasis with gallbladder wall thickening. Findings may represent acute cholecystitis. Clinical correlation recommended 2. Limited evaluation of the hepatic parenchyma fails to demonstrate any focal fluid collections to suggest an abscess. Electronically signed by: Viraj Morin MD 02/02/23 00:59 AM
[2023-02-02] MEDS: PIPERACILLIN/TAZOBACTAM 4.5 GM in DEXTROSE 5% MINI-B 100 ML IV SCH ×3 (05:25→21:02)
[2023-02-02] MEDS: HYDROmorphone INJ 0.5 MG/0.5 ML SYR IV PRN ×2 (05:28→09:41)
--- NOTE | 2023-02-02 07:05 | Hospitalist Progress Note ---
Date of Service February 02, 2023 Assessment & Plan (1) Acute cholecystitis: (2) Obesity (BMI 30.0-34.9): (3) Hypokalemia: (4) Fever: (5) Leukocytosis: Plan: Mr. Shi is a 43 year old male with obesity (BMI of 34.7) and no other noted comorbidities, who is admitted for concerns of acute cholecystitis with plans for lap yulissa on 02/02. There was concern for perforation/abscess formation; however, liver US was negative for fluid collection, though study limited. Patient otherwise HDS. #Acute cholecystitis #?Possible Liver abscess vs hemangioma - 02/01 CT findings demonstrating 2.7 cm gallstone within the gallbladder with moderate gallbladder wall thickening and minimal pericholecystic stranding. The findings favor acute cholecystitis. Adjacent 2.6 cm hypodense focus within the liver. Given close proximity to the gallbladder, a small hepatic abscess in the setting of contained perforation cannot be excluded although the extent of inflammation is less than expected. An indeterminate hepatic lesion such as hemangioma, could appear similar. - US liver without demonstration of fluid collection - Admit to med surg - Continue Zosyn perioperative - Continue LR gentle resuscitation - Gen Surgery on consult, planning lap yulissa today 02/02 - Pain control with IV Dilaudid 0.5 mg Q3H prn for moderate pain and 1 mg Q6H prn for severe pain #Elevated BP -Improved - Will check lipids and A1C for completeness #Obesity - BMI of 34.7 - Diet and exercise to be encouraged throughout hospital stay #Hypokalemia - Replace potassium, K= 3.2 on admission DVT ppx: teds, scds Lines: 2 PIV CODE: Full code Dispo: Contingent on post-operative course, from home w/o needs Admission and Anticipated Discharge Date Admission Date: February 01, 2023 Subjective NAEO Still with pain, mostly positional requiring IV medications No other acute concerns Review of Systems Review of Systems: All systems reviewed & are unremarkable except as noted in Subjective Physical Exam Constitutional: WD/WN, vitals as above Respiratory: normal respiratory effort, lungs clear to auscultation Cardiovascular: RRR, no murmur, no edema Gastrointestinal (Abdomen): mild tenderness to palpation along RUQ/epigastrium Results & Data Results & Data Vital Signs (Past 12 Hours) Vital Signs Temp Pulse Resp BP Pulse Ox O2 Del Method 02/01/23 23:30 37.0 C 70 16 119/78 95 Room Air 02/01/23 21:00 75 15 96 02/01/23 19:00 88 19 144/78 H 96 Laboratory Results Short CBC 02/01/23 Range/Units 14:02 WBC 10.84 H (4.8-10.8) K/ul Hgb 15.5 (14.0-18.0) g/dl Hct 44.0 (42.0-52.0) % Plt Count 195 (130-400) K/uL BMP 02/01/23 14:02 Sodium 138 Potassium 3.2 L Chloride 100 Carbon Dioxide 31 BUN 12 Creatinine 0.89 Glucose 95 Calcium 9.2 Liver Function 02/01/23 Range/Units 14:02 Total Bilirubin 1.0 (0.2-1.0) mg/dl AST 27 (13-39) U/L ALT 40 (7-52) U/L Alkaline Phosphatase 111 H (34-104) U/L Albumin 4.0 (3.4-5.0) gm/dl Urine 02/01/23 Range/Units 18:58 Urine Color Dark Yellow Urine Appearance Clear (Clear) Urine pH 6.0 (4.5-7.5) Ur Specific [place] > 1.045 H (1.000-1.030) Urine Protein 1+ H (Negative) Urine Glucose (UA) Negative (Negative) Diagnostic Findings Gallbladder Ultrasound 02/01/23 18:30 Exam(s): US GALLBLADDER EXAM: US Abdomen Limited, Gallbladder CLINICAL HISTORY: Reason for exam: Assess possible abscess liver on CT, acute yulissa. TECHNIQUE: Real-time ultrasound of the right upper quadrant with image documentation. COMPARISON: No relevant prior studies available. FINDINGS: Liver: Visualized hepatic parenchyma is unremarkable without evidence of an abscess. Gallbladder: Cholelithiasis. Gallbladder wall thickening. Common bile duct: Common bile duct is not visualized on this exam. Pancreas: Unremarkable as visualized. IMPRESSION: 1. Cholelithiasis with gallbladder wall thickening. Findings may represent acute cholecystitis. Clinical correlation recommended 2. Limited evaluation of the hepatic parenchyma fails to demonstrate any focal fluid collections to suggest an abscess. Electronically signed by: Viraj Morin MD 02/02/23 00:59 AM Medications Administered Home Medications Medication Instructions Recorded Confirmed Last Taken No Known Home Medications 02/01/23 02/01/23 Unknown Active Medications Generic Name Dose Route Start Last Admin Trade Name Freq PRN Reason Stop Dose Admin Acetaminophen 650 mg 02/01/23 18:12 02/01/23 19:16 Acetaminophen 325 Mg Tab PO 03/03/23 18:11 650 mg Q4H PRN Administration Moderate Pain (Scale 4, 5, 6) Hydromorphone HCl 0.5 mg 02/01/23 18:41 02/02/23 05:28 Hydromorphone Inj 0.5 Mg/0.5 Ml Syr IV 02/15/23 18:40 0.5 mg Q3H PRN Administration Moderate Pain (Scale 4, 5, 6) Piperacillin Sod/Tazobactam 100 mls @ 25 mls/hr 02/01/23 22:00 02/02/23 05:25 Sod 4.5 gm/ Dextrose IV 02/11/23 21:59 25 mls/hr Q8H LUCÍA Administration Protocol Lactated Ringer's 1,000 mls @ 80 mls/hr 02/01/23 18:35 02/02/23 05:25 Lr IV 02/02/23 07:04 0 mls/hr .[id number] LUCÍA Infusion (5) Leukocytosis Leukocytosis type: unspecified Qualified Code(s): D72.829 - Elevated white blood cell count, unspecified
[2023-02-02 07:32] LABS: Hemoglobin 13.9 g/dl (14.0-18.0); Mean Corpuscular Hemoglobin 29.8 pg (25.0-34.0); Mean Corpuscular Hgb Conc 34.8 g/dL (32.0-36.0); Mean Corpuscular Volume 85.8 fL (80.0-100.0); Mean Platelet Volume 9.7 fL (9.4-12.4); Platelet Count 178 K/uL (130-400); RDW Coefficient of Variation 12.9 % (11.5-14.5); Red Blood Count 4.66 M/uL (4.70-6.10); White Blood Count 9.31 K/ul (4.8-10.8)
[2023-02-02 07:51] LABS: Albumin Level 3.5 gm/dl (3.4-5.0); BUN Creatinine Ratio 12.8 (10-20); Bilirubin Direct 0.5 mg/dl (0-0.2); Bilirubin,Total 1.3 mg/dl (0.2-1.0); Calcium 8.8 mg/dl (8.6-10.3); Chol HDL Ratio 6.3 (0-5); Creatinine Clr Calc Pharmacy 140.8 ml/min; Est GFR (African American) 123.1 ml/min; Est GFR (Non-African American) 106.2 ml/min; Potassium 3.7 mmol/L (3.5-5.1); Total Protein 6.7 gm/dl (6.0-8.3)
[2023-02-02 08:36] LABS: Estimated Average Glucose 94 mg/dl; Hemoglobin A1C 4.9 % (4.5-5.6)
[2023-02-02] MEDS: LACTATED RINGER'S 1,000 ML IV SCH (10:23)
[2023-02-02] MEDS ORDERED: ePHEDrine sulfate 50 MG/ML AMP IV PRN (10:51)
[2023-02-02] MEDS ORDERED: ONDANSETRON INJ 2 MG/ML 2 ML VIAL IV PRN (10:51)
[2023-02-02] MEDS ORDERED: ATROPINE SULFATE 0.1 MG/ML 10ML SYR IV PRN (10:51)
--- NOTE | 2023-02-02 10:51 | Anesthesiology Consultation ---
Date of Service February 02, 2023 Assessment & Plan (1) Encounter for pre-operative examination: Chart Review Chart Review: Acceptable Risk for Surgery and Patient NOT seen in Pre Admission Testing Consults Requested none History Surgery Operation Date: 02/02/23 07:50 Proposed Procedures p Laparoscopic Cholecystectomy - Tang Abdi MD Height/Weight Height: 5 ft 11 in Weight: 111.8 kg Allergies Allergy/AdvReac Type Severity Reaction Status Date / Time No Known Allergies Allergy Unverified 02/01/23 18:52 Medications Home Medications Medication Instructions Recorded Confirmed Last Taken No Known Home Medications 02/01/23 02/01/23 Unknown Active Medications Generic Name Dose Route Start Last Admin Trade Name Freq PRN Reason Stop Dose Admin Acetaminophen 650 mg 02/01/23 18:12 02/01/23 19:16 Acetaminophen 325 Mg Tab PO 03/03/23 18:11 650 mg Q4H PRN Administration Moderate Pain (Scale 4, 5, 6) Hydromorphone HCl 0.5 mg 02/01/23 18:41 02/02/23 09:41 Hydromorphone Inj 0.5 Mg/0.5 Ml Syr IV 02/15/23 18:40 0.5 mg Q3H PRN Administration Moderate Pain (Scale 4, 5, 6) Piperacillin Sod/Tazobactam 100 mls @ 25 mls/hr 02/01/23 22:00 02/02/23 09:30 Sod 4.5 gm/ Dextrose IV 02/11/23 21:59 Infused Q8H LUCÍA Infusion Protocol Lactated Ringer's 1,000 mls @ 15 mls/hr 02/02/23 10:30 02/02/23 10:23 Lr IV 03/04/23 10:29 15 mls/hr .Q24H LUCÍA Administration NPO Date Last Intake of Fluids: 02/02/23 Time Last Intake of Fluids: 02:00 Date Last Intake of Solids: 01/31/23 Time Last Intake of Solids: 14:00 Last Intake of Solids Comment: clear liquid diet prior to 0000 Past Medical History Medical History No significant past medical history Past Family History Family History Father Heart disease Mother Gallstone Uncle Cancer Pancreatic cancer in his 50s, around ~2002. Past Surgical History Surgical History No significant past surgical history Social History Smoking Status: Never smoker Do You Dip or Chew Tobacco: No Hx Alcohol Use: No Hx Substance Use: No Physical Exam Vital Signs Last Vital Signs Temp 98.4 F 02/02/23 10:08 Pulse 82 02/02/23 10:08 Resp 18 02/02/23 10:08 BP 128/82 02/02/23 10:08 Pulse Ox 97 02/02/23 10:08 O2 Del Method Room Air 02/02/23 10:08 Testing Laboratory Results 02/02/23 07:11 02/02/23 07:11 Hemoglobin A1c 4.9 % (4.5-5.6) 02/02/23 07:11 Urine Color Dark Yellow 02/01/23 18:58 Urine Appearance Clear (Clear) 02/01/23 18:58 Urine pH 6.0 (4.5-7.5) 02/01/23 18:58 Ur Specific [place] > 1.045 (1.000-1.030) H 02/01/23 18:58 Urine Protein 1+ (Negative) H 02/01/23 18:58 Urine Glucose (UA) Negative (Negative) 02/01/23 18:58 Urine Ketones 2+ (Negative) H 02/01/23 18:58 Urine Nitrite Negative (Negative) 02/01/23 18:58 Ur Leukocyte Esterase Negative (Negative) 02/01/23 18:58 Urine WBC (Auto) 1-5 /hpf (0-5) 02/01/23 18:58 Urine RBC (Auto) 5-10 /hpf (0-4) H 02/01/23 18:58 U Hyaline Cast (Auto) 0 /lpf (0-5) 02/01/23 18:58 U Epithel Cells (Auto) 5-10 /lpf (0-5) H 02/01/23 18:58 Urine Bacteria (Auto) Negative (Negative) 02/01/23 18:58
[2023-02-02] MEDS ORDERED: fentaNYL citrate PF 100 MCG/2 ML VIAL ONE ×2 (10:52→11:36)
[2023-02-02] MEDS ORDERED: MIDAZOLAM HCL 1 MG/ML 2ML VIAL ONE (10:52)
--- NOTE | 2023-02-02 11:00 | History & Physical Bridge Note ---
Date of Service February 02, 2023 History & Physical Bridge Note I have examined the patient, reviewed the History & Physical and in the interval since the performance of the History & Physical I have noted the following changes of clinical significance: no changes noted
[2023-02-02] MEDS ORDERED: BUPIVACAINE/EPINEPHRINE 0.25% 1:200,000 30 ML VIAL ONE (11:06)
[2023-02-02] MEDS ORDERED: FLOSEAL HEMOSTATIC MATRIX 10ML TOP ONE (12:03)
[2023-02-02] MEDS: SURGICEL ABSORB HEMOSTAT 2IN X 14IN TOP ONE ×2 (12:04→12:24)
[2023-02-02] MEDS ORDERED: GLYCOPYRROLATE 0.2 MG/ML VIAL ONE (12:09)
[2023-02-02] MEDS ORDERED: ONDANSETRON INJ 2 MG/ML 2 ML VIAL ONE (12:09)
[2023-02-02] MEDS ORDERED: LIDOCAINE 2% 2 ML VIAL/AMP(20MG/ML) INFIL ONE (12:09)
[2023-02-02] MEDS ORDERED: PROPOFOL IV EMULSION 10 MG/ML 20 ML VIAL IV ONE (12:09)
[2023-02-02] MEDS ORDERED: ROCURONIUM BROMIDE 10 MG/ML 5 ML VIAL IV ONE (12:09)
[2023-02-02] MEDS ORDERED: NEOSTIGMINE METHYLSULFATE 1 MG/ML 10ML VIAL ONE (12:09)
[2023-02-02] MEDS ORDERED: DEXAMETHASONE SOD INJ 4 MG/ML VIAL ONE (12:09)
--- NOTE | 2023-02-02 12:28 | Post Operative Brief Note ---
Immediate Post Op Note v1 Date of Surgery February 02, 2023 Pre & Post Diagnosis Operation Date: 02/02/23 07:50 Pre-Op Diagnosis: Acute Cholecystitis Post-Op Diagnosis: Acute Cholecystitis I identified the patient and participated in the time-out.: Yes Procedure Operation Date: 02/02/23 07:50 Actual Procedures p Laparoscopic Cholecystectomy(Not Applicable) - Tang Abdi MD Surgeon Tang Abdi MD Operations Associate CARYN Schulz assisted with tissue retraction, camera op, closure Estimated Blood Loss 20 Findings Consistent with Post-Op Diagnosis Drains Garo Drain
--- NOTE | 2023-02-02 12:31 | Operative Report ---
Post Operative Report Pre & Post Diagnosis Operation Date: 02/02/23 07:50 Pre-Op Diagnosis: Acute Cholecystitis Post-Op Diagnosis: Acute Cholecystitis I identified the patient and participated in the time-out.: Yes Procedure Operation Date: 02/02/23 07:50 Actual Procedures p Laparoscopic Cholecystectomy(Not Applicable) - Tang Abdi MD Surgeon Tang Abdi MD Spiritual Minister CARYN Schulz assisted with tissue retraction, camera op, closure Estimated Blood Loss 20 Findings Consistent with Post-Op Diagnosis Severe acute on chronic cholecystitis, small liver abscess in the gallbladder fossa most likely from contained perforation Specimens Gallbladder Drains 15 [place] round Garo drain Anesthesia Type General Complications No immediate complications Description of Procedure The patient was taken to the operating room, and placed supine on the operating table. A timeout was performed, perioperative antibiotics were administered, SCD boots were placed. After adequate anesthesia and analgesia was obtained, the abdomen was prepped and draped in the normal sterile fashion. Local anesthetic was injected into and around the proposed incision sites. An incision was made with a 15 blade scalpel in the supraumbilical region and carried down to the level of the fascia. The fascia was grasped with a trach hook, and a varies needle was used to enter the abdominal cavity. The abdomen was insufflated to a pressure of 15 mmHg, and a 11 mm trocar was placed in this location. A 10 mm, 30 degree laparoscope was placed into the abdominal cavity, and the abdomen was surveyed. The gallbladder was densely adhesed to the omentum surrounding it, and appeared quite distended. Two 5 mm trochars were placed along the right costal margin, and one 5 mm trocar was placed in the subxiphoid region under direct visualization. The gallbladder was quite taut, thick walled, hard to grasp. It was drained with an 18-gauge aspiration needle. The gallbladder was then grasped and retracted cephalad and laterally, exposing the triangle of [place]. Dissection began in the triangle with a combination of blunt dissection with the [place] dissector, and judicious use of the hook cautery. There is a significant amount of acute and chronic inflammation in this location, and the dissection was tedious and meticulous. The cystic duct and cystic artery were carefully dissected free circumferentially, and a critical view of safety was obtained. The cystic duct and cystic artery were clipped and transected, and the gallbladder was removed from the gallbladder fossa with the hook cautery. The gallbladder was densely adherent to the liver, and high on the gallbladder, there appeared to be an area of perforation of the gallbladder into the liver. A small amount of pus was draining from this location. There is also significant amount of bleeding from the inflamed liver bed. The camera was switched to a 5 mm, the gallbladder was placed in an Endo Catch bag, and removed via the supraumbilical port site. The camera was switched back to the 10 mm camera, and the abdomen was surveyed again. Hemostasis was checked and attended, and Floseal was placed into the gallbladder fossa. Hemostasis was noted to be excellent. The abdomen was copiously irrigated and suctioned free. Again hemostasis was checked and was excellent. A 15 [place] Garo drain was placed through the lateral port site and secured with 3-0 nylon suture. All trochars were removed under direct visualization. The abdomen was desufflated. The fascia in the 11 mm port site was closed with a 0 Vicryl suture. The skin was closed with a running 4-0 Monocryl subcuticular stitch. Dermabond was applied. The patient tolerated the procedure without complication, and was transferred in stable condition to the PACU. All instrument, needle, and sponge counts were correct at the end of the case. My assistant teacher primary was necessary throughout the procedure for tissue retraction, possible camera operation, and closure of the wounds. I understand that section 1842(b)(7)(D) of the Social Security act generally prohibits Medicare physician fee schedule payment for the services of assistants at surgery in teaching hospitals when qualified residents are available to furnish such services. I certify that the services for which payment is claimed were medically necessary and that no qualified resident was available to perform the services. I further understand that these services are subject to postpayment review by the Medicare carrier. I attest to the content of the Intraoperative Record and any orders documented therein. Any exceptions are noted below.
[2023-02-02] MEDS: fentaNYL citrate PF 100 MCG/2 ML VIAL IV PRN ×4 (12:46→13:02)
--- NOTE | 2023-02-02 14:13 | Anesthesiology Progress Note ---
Date of Service February 02, 2023 Anesthesia Post Procedure Vital Signs Vital Signs: Temp Pulse Pulse Pulse Resp BP BP 02/02/23 14:10 98.6 F 79 18 128/80 02/02/23 13:52 98.6 F 74 17 125/78 02/02/23 13:25 98.6 F 66 12 125/75 02/02/23 13:15 67 12 133/76 02/02/23 13:05 74 12 124/67 02/02/23 12:55 84 18 144/81 H 02/02/23 12:45 65 12 137/66 02/02/23 12:39 98.4 F 69 16 143/81 H 02/02/23 10:08 98.4 F 82 18 02/02/23 07:33 98.2 F 76 16 02/01/23 23:30 98.6 F 70 16 02/01/23 21:00 75 15 02/01/23 19:00 88 19 02/01/23 18:34 85 21 146/79 H 02/01/23 18:35 87 02/01/23 17:25 84 16 02/01/23 17:25 84 16 BP Pulse Ox O2 Del Method O2 Flow Rate 02/02/23 14:10 97 Room Air 02/02/23 13:52 96 Nasal Cannula 2 02/02/23 13:25 98 Nasal Cannula 2 02/02/23 13:15 97 Nasal Cannula 2 02/02/23 13:05 94 Room Air 02/02/23 12:55 99 Oxymask 6 02/02/23 12:45 100 Oxymask 6 02/02/23 12:39 97 Oxymask 6 02/02/23 10:08 128/82 97 Room Air 02/02/23 07:33 120/76 93 Room Air 02/01/23 23:30 119/78 95 Room Air 02/01/23 21:00 96 02/01/23 19:00 144/78 H 96 02/01/23 18:34 97 Room Air 02/01/23 18:35 02/01/23 17:25 97 Room Air 02/01/23 17:25 142/83 H 97 Room Air Pain Intensity Right Upper Abdomen: Pain Intensity: 3 Right Abdomen: Pain Intensity: 4 Transfer of Care Handoff Completed per policy Notes Mental Status: alert / awake / arousable and participated in evaluation Patient Amnestic to Procedure: Yes Nausea / Vomiting: adequately controlled Pain: adequately controlled Airway Patency, RR, SpO2: stable & adequate BP & HR: stable & adequate Hydration State: stable & adequate Anesthetic Complications: no major complications apparent and Pt Satisfied with anesthetic care
[2023-02-02] MEDS: oxyCODONE/ACETAMINOPHEN 5mg/325mg TAB PO PRN ×2 (14:22→21:02)
[2023-02-02] MEDS: ACETAMINOPHEN 325 MG TAB PO PRN (22:23)
[2023-02-03] MEDS ORDERED: COUGH DROP (SUGAR FREE) LOZ 24 LOZ/1 BOX BUCCAL PRN (00:58)
[2023-02-03] MEDS: oxyCODONE/ACETAMINOPHEN 5mg/325mg TAB PO PRN ×3 (01:49→21:22)
[2023-02-03] MEDS: PIPERACILLIN/TAZOBACTAM 4.5 GM in DEXTROSE 5% MINI-B 100 ML IV SCH ×3 (06:01→21:19)
--- NOTE | 2023-02-03 08:51 | Surgery Progress Note ---
Date of Service February 03, 2023 Assessment & Plan (1) Acute cholecystitis: Plan POD #1 s/p laparoscopic cholecystectomy for acute cholecystitis. There did appear to be a small liver abscess associated with the cholecystitis Advance diet as tolerated Encourage out of bed ambulation, incentive spirometry and flutter valve Check labs this morning Continue IV antibiotics Possible discharge later today or tomorrow morning Admission and Anticipated Discharge Date Admission Date: February 01, 2023 Subjective Doing well. Minimal pain. No nausea or vomiting. Tolerating diet. No fevers Physical Exam Physical Exam: NAD, A&O x3 AFVSS Abdomen: Soft, minimal TTP in RUQ Incisions: C/D/I, Dermabond in place FABIOLA drain with serosanguineous drainage Results & Data Vital Signs (Past 12 Hours) Vital Signs Temp Pulse Resp BP Pulse Ox O2 Del Method 02/03/23 07:59 36.7 C 52 L 16 130/82 96 Room Air 02/03/23 03:15 36.9 C 52 L 18 120/74 95 Room Air 02/02/23 23:35 36.7 C 62 18 138/87 94 Room Air
[2023-02-03 09:08] LABS: Hematocrit (blood only) 39.6 % (42.0-52.0); Hemoglobin 13.7 g/dl (14.0-18.0); Mean Corpuscular Hemoglobin 29.5 pg (25.0-34.0); Mean Corpuscular Hgb Conc 34.6 g/dL (32.0-36.0); Mean Corpuscular Volume 85.3 fL (80.0-100.0); Mean Platelet Volume 9.8 fL (9.4-12.4); Platelet Count 249 K/uL (130-400); RDW Coefficient of Variation 12.7 % (11.5-14.5); RDW Standard Deviation 39.3 fL (36.4-46.3); Red Blood Count 4.64 M/uL (4.70-6.10); White Blood Count 14.22 K/ul (4.8-10.8)
[2023-02-03 09:24] LABS: Albumin Level 3.5 gm/dl (3.4-5.0); BUN Creatinine Ratio 12.8 (10-20); Bilirubin,Total 0.9 mg/dl (0.2-1.0); Calcium 8.8 mg/dl (8.6-10.3); Creatinine Clr Calc Pharmacy 155.3 ml/min; Est GFR (African American) 128.1 ml/min; Est GFR (Non-African American) 110.6 ml/min; Globulin 3.4 gm/dl (2.5-4.0); Potassium 3.8 mmol/L (3.5-5.1); Total Protein 6.9 gm/dl (6.0-8.3)
--- NOTE | 2023-02-03 11:45 | Hospitalist Progress Note ---
Date of Service February 03, 2023 Assessment & Plan (1) Acute cholecystitis: (2) Obesity (BMI 30.0-34.9): (3) Hypokalemia: (4) Fever: (5) Leukocytosis: Plan: Mr. Shi is a 43 year old male with obesity (BMI of 34.7) and no other noted comorbidities, who is admitted for concerns of acute cholecystitis with plans for lap yulissa on 02/02. There was concern for perforation/abscess formation; however, liver US was negative for fluid collection, though study limited. Patient otherwise HDS. #Acute cholecystitis #?Possible Liver abscess vs hemangioma - 02/01 CT findings demonstrating 2.7 cm gallstone within the gallbladder with moderate gallbladder wall thickening and minimal pericholecystic stranding. The findings favor acute cholecystitis. Adjacent 2.6 cm hypodense focus within the liver. Given close proximity to the gallbladder, a small hepatic abscess in the setting of contained perforation cannot be excluded although the extent of inflammation is less than expected. An indeterminate hepatic lesion such as hemangioma, could appear similar. - US liver without demonstration of fluid collection - POD #1 s/p laparoscopic Cholecystectomy by Dr. Abdi -Continue Zosyn ppost-operatively -Advancing diet per surgery, planning on clears for lunch #Elevated BP -Improved - Will elevated chol/HDL level but otherwise WNL #Obesity - BMI of 34.7 - Diet and exercise to be encouraged throughout hospital stay #Hypokalemia - Potassium repleted DVT ppx: teds, scds Lines: 2 PIV CODE: Full code Dispo: Contingent on post-operative course, from home w/o needs Admission and Anticipated Discharge Date Admission Date: February 01, 2023 Supervising Physician Co-Signing Physician Notes I have seen and discussed the case with the collaborating PA-C. I agree with the above H&P. I have reviewed and confirmed the patients medical history, the findings on physical examination, and the patients diagnosis and treatment plan with collaborating PA-C and agree with the information documented. In short, Mr. Shi is a 43 year old gentleman with history of RUQ ongoing under ribcage x5days. Imaging with signs of cholecysitis and ?abscess formation. HDS. s/p lap yulissa, currently diet being advanced per Sx. Subjective Seen and examined in 383-1. Some minimal postoperative discomfort, specifically in right upper quadrant region. Tolerating clears this morning and advancing to full liquids for lunch. Passing flatus. Denies any nausea or vomiting. No fever, chills, lightheadedness, chest pain, shortness of breath, dysuria. Review of Systems Review of Systems: At least ten systems reviewed and negative except as noted in the HPI. Physical Exam Physical Exam: Gen: WD/WN, NAD, resting in bed comfortably, A&Ox3 HEENT: Normocephalic, atraumatic, conjunctivae moist, sclerae anicteric, mucous membranes moist Lung: Clear to Auscultation bilaterally, no wheezes/rales/rhonchi Heart: Regular rate, regular rhythm, no murmurs, rubs, or gallops Abdomen: Soft, abdominal binder in place, c/d/i, + Frank drain visualized Extremities: no edema Skin: Warm, no rash Results & Data Results & Data Vital Signs (Past 12 Hours) Vital Signs Temp Pulse Resp BP Pulse Ox O2 Del Method 02/03/23 10:58 36.7 C 71 16 130/79 96 Room Air 02/03/23 08:53 Room Air 02/03/23 07:59 36.7 C 52 L 16 130/82 96 Room Air 02/03/23 03:15 36.9 C 52 L 18 120/74 95 Room Air Laboratory Results Short CBC 02/03/23 Range/Units 08:38 WBC 14.22 H (4.8-10.8) K/ul Hgb 13.7 L (14.0-18.0) g/dl Hct 39.6 L (42.0-52.0) % Plt Count 249 (130-400) K/uL BMP 02/03/23 08:38 Sodium 137 Potassium 3.8 Chloride 100 Carbon Dioxide 32 BUN 10 Creatinine 0.78 Glucose 139 H Calcium 8.8 Liver Function 02/03/23 Range/Units 08:38 Total Bilirubin 0.9 (0.2-1.0) mg/dl AST 30 (13-39) U/L ALT 44 (7-52) U/L Alkaline Phosphatase 99 (34-104) U/L Albumin 3.5 (3.4-5.0) gm/dl Diagnostic Findings Chest X-Ray 02/01/23 12:58 XR chest 1V not portable HISTORY: 43 years-old Male RUQ abd pain acute right upper quadrant abdominal pain COMPARISON: None TECHNIQUE: PA view of the chest FINDINGS: Cardiac mediastinal and hilar silhouettes are within normal limits. No pneumothorax, pleural effusion, airspace consolidation or pulmonary edema. Bones appear grossly intact. IMPRESSION: No acute process. ACT 112: Negative or not required by law. The above report was generated using voice recognition software. It may contain grammatical, syntax or spelling errors. Electronically signed by: Wilfredo Ward M.D. 02/01/2023 1:29 PM Abdomen/Pelvis CT 02/01/23 12:59 CT OF THE ABDOMEN AND PELVIS WITH CONTRAST CLINICAL HISTORY: Right upper quadrant abdominal pain. COMPARISON STUDY: None. TECHNIQUE: Following IV administration of 91 mL of Optiray, axial images of the abdomen and pelvis were obtained from the lung bases to the proximal femurs. Images were reviewed in the axial, sagittal, and coronal planes. IV contrast was administered without complication. Automated exposure control was utilized for the study. A dose lowering technique was utilized adhering to the principles of ALARA. CT DOSE: 1549.61 mGy.cm FINDINGS: A 5 mm right lower lobe nodule on image 13 of 413 and is probably benign. No pneumatosis, free air or portal venous gas is present. The gallbladder is mildly distended. A 2.7 cm gallstone within the gallbladder is noted. There is moderate gallbladder wall thickening with minimal pericholecystic stranding. Note is made of a 2.6 cm hypodense focus within the adjacent portion of the liver, within segment 5. This may have mild peripheral enhancement. No biliary or pancreatic ductal dilatation is present. Spleen, adrenal glands, kidneys and pancreas are normal. There is no evidence for a bowel obstruction. The caliber and wall thickness of small and large bowel are normal. The appendix is normal. Major vasculature is patent. There is no lymphadenopathy. IMPRESSION: 2.7 cm gallstone within the gallbladder with moderate gallbladder wall thickening and minimal pericholecystic stranding. The findings favor acute cholecystitis. Adjacent 2.6 cm hypodense focus within the liver. Given close proximity to the gallbladder, a small hepatic abscess in the setting of contained perforation cannot be excluded although the extent of inflammation is less than expected. An indeterminate hepatic lesion such as hemangioma, could appear similar. ACT 112: Negative or not required by law. Electronically signed by: Gary Cordero M.D. 02/01/2023 4:26 PM Gallbladder Ultrasound 02/01/23 18:30 Exam(s): US GALLBLADDER EXAM: US Abdomen Limited, Gallbladder CLINICAL HISTORY: Reason for exam: Assess possible abscess liver on CT, acute yulissa. TECHNIQUE: Real-time ultrasound of the right upper quadrant with image documentation. COMPARISON: No relevant prior studies available. FINDINGS: Liver: Visualized hepatic parenchyma is unremarkable without evidence of an abscess. Gallbladder: Cholelithiasis. Gallbladder wall thickening. Common bile duct: Common bile duct is not visualized on this exam. Pancreas: Unremarkable as visualized. IMPRESSION: 1. Cholelithiasis with gallbladder wall thickening. Findings may represent acute cholecystitis. Clinical correlation recommended 2. Limited evaluation of the hepatic parenchyma fails to demonstrate any focal fluid collections to suggest an abscess. Electronically signed by: Viraj Morin MD 02/02/23 00:59 AM (5) Leukocytosis Leukocytosis type: unspecified Qualified Code(s): D72.829 - Elevated white blood cell count, unspecified
[2023-02-03] MEDS: LACTATED RINGER'S 1,000 ML IV SCH (16:29)
[2023-02-03] MEDS: ACETAMINOPHEN 325 MG TAB PO PRN (18:30)
[2023-02-04] MEDS: oxyCODONE/ACETAMINOPHEN 5mg/325mg TAB PO PRN (01:27)
[2023-02-04] MEDS: PIPERACILLIN/TAZOBACTAM 4.5 GM in DEXTROSE 5% MINI-B 100 ML IV SCH ×2 (05:11→13:40)
[2023-02-04 07:50] LABS: Hematocrit (blood only) 36.6 % (42.0-52.0); Hemoglobin 12.5 g/dl (14.0-18.0); Mean Corpuscular Hemoglobin 29.7 pg (25.0-34.0); Mean Corpuscular Hgb Conc 34.2 g/dL (32.0-36.0); Mean Corpuscular Volume 86.9 fL (80.0-100.0); Mean Platelet Volume 9.7 fL (9.4-12.4); Platelet Count 250 K/uL (130-400); RDW Coefficient of Variation 12.9 % (11.5-14.5); RDW Standard Deviation 40.8 fL (36.4-46.3); Red Blood Count 4.21 M/uL (4.70-6.10); White Blood Count 8.72 K/ul (4.8-10.8)
[2023-02-04 08:08] LABS: Albumin Globulin Ratio 1.1 (0.9-2); Albumin Level 3.3 gm/dl (3.4-5.0); BUN Creatinine Ratio 7.6 (10-20); Bilirubin,Total 0.6 mg/dl (0.2-1.0); Calcium 8.7 mg/dl (8.6-10.3); Creatinine Clr Calc Pharmacy 131.6 ml/min; Est GFR (African American) 117.6 ml/min; Est GFR (Non-African American) 101.5 ml/min; Globulin 3.1 gm/dl (2.5-4.0); Potassium 3.7 mmol/L (3.5-5.1); Total Protein 6.4 gm/dl (6.0-8.3)
[2023-02-04] MEDS: ACETAMINOPHEN 325 MG TAB PO PRN (08:13)
--- NOTE | 2023-02-04 10:10 | Surgery Progress Note ---
Date of Service February 04, 2023 Assessment & Plan (1) Acute cholecystitis: Plan POD #2 s/p laparoscopic cholecystectomy for acute cholecystitis. There did appear to be a small liver abscess associated with the cholecystitis Advance diet as tolerated Encourage out of bed ambulation, incentive spirometry and flutter valve Remove FABIOLA drain May discharge to home today Admission and Anticipated Discharge Date Admission Date: February 01, 2023 Subjective Doing well. No nausea or vomiting. No fevers. Tolerating diet. Ambulating. Physical Exam Physical Exam: NAD, A&O x3 AFVSS Abdomen: Soft, minimal TTP in RUQ Incisions: C/D/I, Dermabond in place FABIOLA drain with serosanguineous drainage Results & Data Vital Signs (Past 12 Hours) Vital Signs Temp Pulse Resp BP Pulse Ox O2 Del Method 02/04/23 08:03 36.8 C 17 116/79 96 Room Air 02/03/23 22:48 36.6 C 70 18 125/79 94 Room Air
[2023-02-04] MEDS: LACTATED RINGER'S 1,000 ML IV SCH (11:37)
--- NOTE | 2023-02-04 11:51 | Discharge Summary ---
Date of Service February 04, 2023 Admission HPI Per Admitting Provider This is a 43 yo M with PMhx of obesity with BMI of 34.7,without any other past medical history, who presents the hospital with right upper quadrant abdominal pain fever, chills, rigors x5 days. He has intermittently had RUQ abdominal pain since 2020. Prior to his worsening pain this past Wednesday, the last time it occurred was over 6 months ago. Pt notes that he ate ribs on Wednesday night, and then woke up at 3:30a-4:00am with excruciating RUQ pain which lasted nearly for 12 hours. His pain was dull and lessened later in the day after taking ibuprofen. Since then he has had minimal appetite, and intermittent nausea, no vomiting. Denies diarrhea. Pt has been tolerating fluids without worsening pain. He had been taking ibuprofen 400 mg Q8H since for both pain, and admits to fever of 100, with chills and rigors on and off for the past 48 hours despite consistently taking the ibuprofen. He denies any previous abdominal surgeries. Pt has never experienced something like this before. His pain is currently minimal rating 1/10. Pt denies any recent travel outside of the [place], or even domestic travel. No recent consumption of raw or undercooked foods. His significant other knows that he is in the ER and plans to visit him this evening. Social Hx: Denies alcohol, tobacco use or illicit drug use. 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 Admission Exam Per Admitting Provider General: awake, alert, no apparent distress, obese white male Head: Normocephalic, atraumatic ENT: PERRL, EOMI, no pharyngeal exudate, mucous membranes moist Chest: Clear to auscultation, on room air, no adventitious breath sounds Cardiac: Regular rate and rhythm, no murmur, no JVD, normal peripheral pulses, good capillary refill Abdominal: NABS x 4 quadrants, soft, nondistended, minimally tender to palpation in RUQ, no rebound or guarding Extremities: Normal inspection, no peripheral edema or erythema, calfs nontender to palpation Psych: Normal mood and affect Neuro: AAO x 3, strength intact bilaterally and rated 5/5, no motor deficits, speech is clear, no peripheral sensory deficits Principal Diagnosis Acute cholecystitis, status post laparoscopic cholecystectomy Discharge Exam Gen: WD/WN, NAD, resting in bed comfortably, A&Ox3 HEENT: Normocephalic, atraumatic, conjunctivae moist, sclerae anicteric, mucous membranes moist Lung: Clear to Auscultation bilaterally, no wheezes/rales/rhonchi Heart: Regular rate, regular rhythm, no murmurs, rubs, or gallops Abdomen: Soft, abdominal binder in place, c/d/i, + Frank drain visualized Extremities: no edema Skin: Warm, no rash Discharge Data Allergies Allergy/AdvReac Type Severity Reaction Status Date / Time No Known Allergies Allergy Unverified 02/01/23 18:52 Consultations 02/01/23 17:38 ED Decision to Admit Stat 02/01/23 18:12 Consult General Surgery Routine Procedures Performed Operation Date: 02/02/23 07:50 Actual Procedures p Laparoscopic Cholecystectomy(Not Applicable) - Tang Abdi MD Ordered Studies 02/01/23 12:59 CT abd pelvis IV con only Stat 02/01/23 18:30 US GB [US gallbladder] Stat Hospital Course (1) Acute cholecystitis: (2) Obesity (BMI 30.0-34.9): (3) Hypokalemia: (4) Fever: (5) Leukocytosis: Mr. Shi is a 43 year old male with obesity (BMI of 34.7) and no other noted comorbidities, who is admitted for concerns of acute cholecystitis with plans for lap yulissa on 02/02. There was concern for perforation/abscess formation; however, liver US was negative for fluid collection, though study limited. Patient otherwise HDS. He was managed for the following: #Acute cholecystitis #?Possible Liver abscess vs hemangioma - 02/01 CT findings demonstrating 2.7 cm gallstone within the gallbladder with moderate gallbladder wall thickening and minimal pericholecystic stranding. The findings favor acute cholecystitis. Adjacent 2.6 cm hypodense focus within the liver. Given close proximity to the gallbladder, a small hepatic abscess in the setting of contained perforation cannot be excluded although the extent of inflammation is less than expected. An indeterminate hepatic lesion such as hemangioma, could appear similar. - US liver without demonstration of fluid collection - POD #2 s/p laparoscopic Cholecystectomy by Dr. Abdi -Continue Zosyn ppost-operatively --> to Augmentin on DC -Patient tolerating advancement of diet, moved bowel yesterday evening. Reports belly pain under control. -Patient to follow-up with general surgery within a week time upon discharge. Patient to follow-up with PCP within a week time upon discharge. #Elevated BP -Improved #Obesity - BMI of 34.7 - Diet and exercise encouraged throughout hospital stay #Hypokalemia: Monitor and replete CODE: Full code Patient being discharged home with following instruction at the point of discharge: Follow-up with your primary care physician within a week time and likely you will need labs CBC/CMP/magnesium/phosphorus. Follow-up with your general surgeon as recommended upon discharge. Take your medications as prescribed. Please make sure that you are able to get your medications today by calling your pharmacy before you leave the hospital so that your treatment continuity is not broken. Home Health Attestation I certify that this patient is under my care and that I, or a physicians assistant district attorney working with me, had a face to-face encounter that meets the home health [id number] encounter requirements with this patient. The encounter with the patient was in whole, or in part, for the following medical condition, which is the primary reason for home health care (list medical condition): I certify that, based on my findings, the following services are medically necessary home health services: My clinical findings support the need for the above services because: Further, I certify that my clinical findings support that this patient is homebound (i.e. absences from home require considerable and taxing effort and are for medical reasons or holiness services or infrequently or of short duration when for other reasons) because: Certification for Home Health Services: Based on the above findings, I certify that this patient is confined to the home and needs intermittent [facility] care, physical therapy and/or speech therapy or continues to need occupational therapy. The patient is under my care, and I have initiated the establishment of the plan of care. This patient will be followed by a physician who will periodically review the plan of care. Total Time Total Time Spent Total Time Spent (In Minutes): 40 Discharge Plan Discharge Items Patient Disposition: Home - Self-Care Reason For Visit: ACUTE CHOLECYSTITIS Discharge Diagnosis: Acute cholecystitis, status post laparoscopic cholecystectomy Activity: As commented below Non-emergency contact: Primary Care Provider Call non-emergency contact if: you have any medication questions and your sympto ms worsen Follow-up/Referrals: Tang Abdi MD [Physician] - (Date & Time 02/24/2023 11:30 AM Provider Tang Abdi MD Department General Surgery, [facility] ) Emily Henderson MD [Outside Practitioners] - (Date & Time 02/08/2023 11:20 AM Provider Emily Henderson MD Department Family Practice [facility] ) Diet: Low Fat Diet Texture: Dental soft (bite-sized) Addtl Attending Provider Instructions: Follow-up with your primary care physician within a week time and likely you will need labs CBC/CMP/magnesium/phosphorus. Follow-up with your general surgeon as recommended upon discharge. Take your medications as prescribed. Please make sure that you are able to get your medications today by calling your pharmacy before you leave the hospital so that your treatment continuity is not broken. Addtl Manager Employment Provider Instructions: Post-Surgical ~Discharge Instructions Activity Recommendations: - lifting limitation: (20 pounds for 2-3 weeks), - exercise/sex/sports limit: (nonstrenuous for 2 weeks), - driving or machine use limit: (none for 1 week or until pain free and no longer taking narcotic pain medication), - Shower/bathe limit: (may shower, no submerging underwater for 2 weeks) Diet: - Resume previous diet SPECIAL CARE INSTRUCTIONS: - May shower. Let water run over area and pat dry. - Leave Dermabond in place. - Surgical drain site will heal from inside out. Replace dressings as needed and daily to keep clean and dry until completely healed. - Call the surgeon's office with any questions or concerns - - (ex. temperature higher than 101 degrees F, excessive bleeding or pain). MEDICATIONS: - Resume previous medications unless instructed otherwise by your surgeon. - May alternate extra strength Tylenol and Ibuprofen as needed for mild to moderate pain -650 mg Tylenol every 6 hours as needed - Ibuprofen 600 mg every 6 hours as needed (take with food) - Percocet 1 every 6 hours, as needed for moderate to severe pain - Recommend daily stool softener (Colace) while taking narcotic pain medication to prevent constipation or straining. - Take antibiotics as prescribed for entire course FOLLOW UP VISIT: - If not already scheduled, please call the office to schedule a two week follow-up appointment. Office number Pending Studies at Discharge: No Stand-Alone Forms: My [facility], Smoking Cessation Medications and DC Order Prescriptions: New oxycodone-acetaminophen 5-325 mg tablet 1 tab PO Q6H PRN (Reason: pain) Qty: 10 0RF amoxicillin-pot clavulanate 875-125 mg tablet 1 tab PO BID Qty: 14 0RF Discharge Orders: Discharge Order (Routine); Ordered 02/04/23 Ordered By: David aBhena Admission Data Admit Date/Time: 02/01/23 17:38 Attending Provider: David Bahena Admit Provider: Cheryl Reyez Primary Care Provider: PCP,NO Other Providers: Cheryl Reyez ; Tang Abdi ; Cira Morales
== END 2023-02-04 17:08 | disposition home or self-care (01) | DRG 417 ==
LOC: ED 12:35 → SUATTDRO 17:38 → EDINP 17:38 → 3N 22:12
DX: K81.2 Acute cholecystitis with chronic cholecystitis; Z83.79 Family history of other diseases of the digestive system; E66.9 Obesity, unspecified; E87.6 Hypokalemia; Z68.34 Body mass index [BMI] 34.0-34.9, adult; K75.0 Abscess of liver; D18.03 Hemangioma of intra-abdominal structures